=== PATIENT | female | born 1950 | race Caucasian/White ===

== ENCOUNTER 2016-08-06 07:54 | Inpatient (IN) | payer MEDICARE, BC ==
--- NOTE | 2016-08-01 15:38 | HP ---
PREOPERATIVE HISTORY AND PHYSICAL: DATE OF ADMISSION: 08/06/16 ATTENDING SURGEON: Dr. Sheehan (DICTATED BY MANDY OMER) CHIEF COMPLAINT: Left knee pain. HISTORY OF PRESENT ILLNESS: Ms. Fernandes is a 65-year-old female who has had greater than 5 years' worth of left knee pain. It has gotten worse over the past 6 months. She has been taking Vicodin for it with minimal relief. She has had a right total knee arthroplasty; however, the left knee has become much more painful. She is interested in surgical intervention for the correction of this problem. She has failed conservative treatment with injections, pain medication, and physical therapy. PAST MEDICAL HISTORY: 1. Hypertension. 2. Spinal stenosis. 3. Depression. 4. Sleep apnea. 5. Morbid obesity. 6. GERD. PAST SURGICAL HISTORY: 1. Tonsillectomy in 1952. 2. D and C x5 in 1968, 1969, 1970, 2004 and 2008. 3. Left breast lumpectomy in 1988. 4. Right total knee replacement in 2006. 5. Bilateral carpal tunnel release. CURRENT MEDICATIONS: 1. Fish oil 1000 mg 3 g daily. 2. Multivitamin daily. 3. Vitamin D 1000 units p.o. daily. 4. Vitamin E 400 units p.o. daily. 5. Vitamin C 500 mg p.o. daily. 6. Vicodin 5/325 mg 1 to 2 tabs every 4 to 6 hours as needed for pain. 7. Hydrochlorothiazide 25 mg p.o. daily. 8. Amlodipine besylate 10 mg p.o. daily. 9. Diclofenac sodium 75 mg p.o. b.i.d. 10. Cymbalta 60 mg p.o. daily. 11. Omeprazole 40 mg p.o. daily. 12. FiberCon 625 mg 2 tabs twice a day. ALLERGIES: TRAZODONE and AMITRIPTYLINE. FAMILY HISTORY: Positive for history of cancer. Negative for heart disease or diabetes. SOCIAL HISTORY: The patient is . She lives alone, although her son will be available to help postoperatively. She is a retired sterile instrument technician. She is a former smoker; however, she quit about 40 years ago. She drinks alcoholic beverages occasionally. She exercises regularly. REVIEW OF SYSTEMS: Constitutional: Negative for recent hospitalizations, fevers, chills, night sweats, or unexplained weight loss. Head: Negative for headaches, lightheadedness, or balance problems. Cardiovascular: Negative for chest or arm pain with exertion, history of heart attack, heart murmur, or heart palpitations. Positive for high blood pressure. Negative for embolism or DVT. Respiratory: Positive for some shortness of breath with exertion, but no chronic cough. No history of asthma or COPD. Gastrointestinal: Negative for heartburn, nausea, vomiting, diarrhea, or constipation. Positive for history of GERD. Genitourinary: Negative for urinary frequency or urinary tract infections. Positive for nocturia. Negative for kidney problems. Musculoskeletal: Positive for some chronic back pain. No recent fractures. Skin: Negative for rashes, lesions, lumps, or sores. Neurologic: Negative for seizure, stroke, or epilepsy. Positive for depression and anxiety. Endocrine: Negative for diabetes or thyroid problems. Hematology: Negative for easy bleeding, bruising, or anemia. PHYSICAL EXAMINATION GENERAL: She is a well-developed, well-nourished, heavyset female in no acute distress at rest. She is alert and oriented x3 with appropriate mood and affect. Gait: She ambulates with a mildly antalgic gait favoring the left. She has good balance and coordination. VITAL SIGNS: The patient is 5 feet 5 inches, 295 pounds. Blood pressure 119/78 , pulse of 96, respirations 20, temperature 97.9. HEENT: Normocephalic, atraumatic. Her hearing and vision are grossly intact. NECK: Her trachea is midline. RESPIRATORY: Lungs clear to auscultation bilaterally. No wheezes, rales, or rhonchi. CARDIOVASCULAR: Regular rate and rhythm. No murmurs, rubs, or gallops. Normal S1, S2. ABDOMEN: Soft, nondistended, nontender. Normal bowel sounds. EXTREMITIES: Exam of the left lower extremity, skin is intact without abrasions or open wounds. She lacks a little bit of full extension and can flex just past 90 degrees. She has a negative varus and valgus stress test. She is diffusely tender over the medial side of the knee. She has good strength with flexion and extension. Her sensation to light touch is intact. She has a normal vascular exam. IMAGING: AP, lateral and sunrise views of the patella were previously obtained and show bone on bone in the medial compartment with significant spurring and subchondral sclerosis. IMPRESSION: End-stage osteoarthritis of the left knee. PLAN: The patient is to undergo left total knee arthroplasty by Dr. Sheehan on 08/06/16. The risks, benefits, and postoperative course were discussed with the patient at length and she would like to proceed. A prescription for Percocet and Coumadin was sent out to pharmacy for postoperative pain and DVT prophylaxis. She is understanding not to take any of these prior to surgery. All of her questions were answered to her full satisfaction. She is understanding to call should she develop problems or concerns. We will otherwise follow with the patient postoperatively. MANDY OMER [id number]/[facility] #: [id number] KIN
[~2016-08-06 07:54] MED LIST: Buffered Lidocaine 0.9% SYRIN* 5 ML/SYR SYRINGE INTRADERM ONE; Famotidine IV* 10 MG/ML 2 ML (20 mg) IV ONE
[2016-08-06] MEDS ORDERED: ceFAZolin 2 GM PREMIX(*) 2 GM/50 ML BAG IVPB ONE (08:11)
[2016-08-06] MEDS ORDERED: Buffered Lidocaine 0.9% SYRIN* 5 ML/SYR SYRINGE ONE (08:11)
[2016-08-06] MEDS ORDERED: Famotidine IV* 10 MG/ML 2 ML (20 mg) ONE (08:11)
[2016-08-06] MEDS ORDERED: KETAMINE HCL* 50 MG/ML 10 ML VIAL ONE (08:21)
[2016-08-06] MEDS ORDERED: Midazolam* 1 MG/ML 5 ML VIAL (5 MG) ONE (08:21)
[2016-08-06] MEDS ORDERED: fentaNYL* 50 MCG/ML 2 ML VIAL (100 MCG VIAL) ONE (08:21)
[2016-08-06] MEDS ORDERED: DiMENhydriNATE IV* 50 MG/ML VIAL ONE (08:22)
[2016-08-06] MEDS ORDERED: ROPIVACAINE 5 MG/ML 30 ML BTL (0.5%) ONE (08:22)
[2016-08-06] MEDS ORDERED: Propofol* 10 MG/ML 20 ML BTL IV PUSH ONE ×3 (08:22→11:50)
[2016-08-06] MEDS ORDERED: Ketorolac INJ* 30 MG/ML 1 ML VIAL ONE (08:22)
[2016-08-06] MEDS ORDERED: Lidocaine 2% PF * 5 ML VIAL ONE (08:22)
[2016-08-06] MEDS ORDERED: Morphine PF AMP (0.5MG/ML)* 5 MG/10 ML AMP ONE (08:22)
[2016-08-06] MEDS ORDERED: Ondansetron INJ* 2 MG/ML VIAL ONE (08:22)
[2016-08-06] MEDS ORDERED: Bupivacaine 0.25% W/EPI* 50 ML VIAL ONE (10:40)
[2016-08-06] MEDS ORDERED: Midazolam* 1 MG/ML 2 ML VIAL (2 MG) ONE ×2 (10:48→10:56)
[2016-08-06] MEDS ORDERED: DiMENhydriNATE IV* 50 MG/ML VIAL IV PUSH PRN (11:12)
[2016-08-06] MEDS ORDERED: HYDROmorphone* 1 MG/ML 1 ML SYR IV PRN (11:12)
[2016-08-06] MEDS ORDERED: oxyCODONE/Acetamin 5/325 MG* TAB PO PRN ×2 (11:12→12:52)
[2016-08-06] MEDS ORDERED: Naloxone* 0.4 MG/ML 1 ML VIAL IV PRN (11:13)
[2016-08-06] MEDS ORDERED: Ondansetron INJ* 2 MG/ML VIAL IV PRN (11:13)
[2016-08-06] MEDS ORDERED: Gabapentin CAP(*) 300 MG PO ONE ×2 (11:13→19:47)
[2016-08-06] MEDS ORDERED: Nalbuphine* 20 MG/ML 1 ML VIAL IV PRN (11:13)
[2016-08-06] MEDS ORDERED: Bisacodyl SUPP* 10 MG SUPP PR PRN (12:52)
[2016-08-06] MEDS ORDERED: Morphine INJ* 10 MG/ML 1 ML SYRINGE IV PRN (12:52)
[2016-08-06] MEDS ORDERED: Polyethylene Glycol 3350* 17 GM PACKET PO PRN (12:52)
[2016-08-06] MEDS ORDERED: D5W 1/2 NS 1000 ML BAG* 1,000 ML IV SCH (13:00)
--- NOTE | 2016-08-06 13:37 | RAD ---
INDICATION: Status post left total knee arthroplasty COMPARISON: None TECHNIQUE: 2 view radiograph of the left knee. FINDINGS: The recently placed left knee prosthesis is anatomically aligned. Surgical skin luis are seen overlying the anterior knee. IMPRESSION: Anatomic alignment of recently placed left knee prosthesis.
[2016-08-06] MEDS ORDERED: Warfarin TAB(*) 4 MG PO ONE (17:00)
[2016-08-06] MEDS ORDERED: Morphine INJ* 10 MG/ML 1 ML SYRINGE ONE (17:13)
[2016-08-06] MEDS ORDERED: oxyCODONE/Acetamin 5/325 MG* TAB ONE (17:13)
[2016-08-06 17:15] LABS: BUN/Creatinine Ratio 21.2 (8-20); Calcium 8.4 mg/dL (8.6-10.3); EGFR African American 114.9 (>60); EGFR Non-African American 89.3 (>60); Magnesium 1.8 mg/dL (1.9-2.7); Potassium 3.9 mmol/L (3.5-5.0)
--- NOTE | 2016-08-06 17:27 | CONS ---
CC: Dr. Traore; Dr. Sheehan * CONSULTATION REPORT: DATE OF CONSULT: 08/06/16 PRIMARY CARE PROVIDER: Dr. Traore. REQUESTING PHYSICIAN FOR CONSULT: Dr. Sheehan. REASON FOR MEDICAL CONSULTATION: Evaluation and management of comorbid medical conditions. HISTORY OF PRESENT ILLNESS: Ms. Fernandes is a 65-year-old female patient. I refer you to Dr. Sheehan's H and P for further details, but she is 65, she has a history of hypertension, spinal stenosis, depression, ANUSHA, obesity, and GERD. She came in to Dr. Sheehan's service with complaints of left knee pain that was failing conservative therapy. She opted for a left total knee replacement which she underwent today. She did see Dr. Traore for preoperative evaluation. It was noted in the PACU and also apparently during the case, the patient was having irregular heartbeat frequently, although I do not have a pertinent strip to confirm this. The patient says that she has had a history of palpitations in the past for about the last year and a half. She has had palpitations and she had a Holter monitor about a year ago. She denies any chest pain. Denies any shortness of breath. She says that she had a stress test in [place] recently within the year. We will try to get that record. She denies having any abdominal pain or any nausea now. She says her pain is well controlled. She states that she does not feel lightheaded or dizzy, but because of her medical problems we were asked to evaluate in consult. PAST MEDICAL HISTORY: Significant for: 1. Hypertension. 2. Spinal stenosis. 3. Depression. 4. Obesity. 5. GERD. 6. ANUSHA. SURGICAL HISTORY: 1. She has had a history of tonsillectomy. 2. D and C x5. 3. She has had a lumpectomy. 4. Right total hip replacement. 5. Now, left total hip replacement. 6. She has had bilateral carpal tunnel repair. HOME MEDICATIONS: According to the preop list given include: 1. Norvasc 10 mg p.o. q.a.m. 2. Prilosec 40 mg daily. 3. [place]-3 fatty acids 1000 mg p.o. q.a.m. 4. Multivitamin 1 tablet daily. 5. Ativan 1 to 2 tablets p.o. at bedtime. 6. Lisinopril 40 mg daily. 7. Hydrochlorothiazide 25 mg daily. 8. Diclofenac 75 mg p.o. b.i.d. 9. Cymbalta 60 mg daily. 10. Vitamin C 500 mg p.o. daily. ALLERGIES TO MEDICATIONS: Include TRAZODONE and AMITRIPTYLINE. FAMILY HISTORY: Her mother had a history of AFib. Father had a history of cancer. SOCIAL HISTORY: She is a former smoker. Occasionally drinks alcohol. Surrogate decision maker is her son. REVIEW OF SYSTEMS: There is no documented fever. She denied any significant weight change. No double vision. No ear discharge. She denies having any rhinorrhea. No sore throat. No thyroid enlargement. Denies having any chest pain currently. There were palpitations. No orthopnea. No nocturnal dyspnea. There is no abdominal pain. No nausea. No vomiting. No dysuria. No frequency. No loss of consciousness. No pruritus. No skin ulcerations. Review of 14 systems completed, all others negative. PHYSICAL EXAM: Reveals Vital Signs: Blood pressure of 120/70 with a pulse of 73, respirations 15, O2 sat 96%, and temperature 97.0. General: At this time, Ms. Fernandes is a 65-year-old female patient. She is sitting in the PACU bed. She does not appear to be in any acute distress. HEENT: Head is atraumatic and normocephalic. Eyes: EOMs are intact. Sclerae anicteric and not pale. Throat: Oral mucosa appears to be moist. No oropharyngeal erythema. Neck: Supple. Heart: Sounds S1, S2. Regular rate and rhythm. No murmurs, rubs, or gallops. Lungs: Clear to auscultation bilaterally. No wheezes, rales, or rhonchi. Abdomen was soft, flat. Bowel sounds hypoactive. Extremities: Distal CSM checks were intact to the left lower extremity. She is unable to move this extremity due to pain and it is the operative leg. She moves the upper extremities with 5/5 strength. Neurological: The patient is awake, she is alert, and she is oriented x3. Tongue midline. Motor Room Controller are equal. No gross focal deficits. The skin is intact. DIAGNOSTIC STUDIES/LAB DATA: Preoperatively, WBC 7.3, RBC of 5.18, hemoglobin of 15.1, hematocrit 46, platelet count 245,000. INR 0.93. PTT of 29. Sodium 137, potassium 4.4, chloride of 105, bicarb 25, BUN 17, creatinine of 0.79, glucose of 91. Urine preop was negative. She had a preop chest x-ray. The chest x-ray shows no active cardiopulmonary disease. The preop EKG shows a normal sinus rhythm, rate of 90. No ST elevations or T-wave inversions. Old medical records were reviewed. ASSESSMENT AND PLAN: Ms. Fernandes is a 65-year-old female patient coming in to the orthopedic services today for an elective total knee replacement. We are asked to evaluate in consult. Our recommendations at this point are: 1. Status post left total knee replacement: I will defer the management to Dr. Sheehan and his team. 2. Palpitations: Again, there is question if she was going in and out of atrial fibrillation. I do not have any strips to prove this. I am going to try to see if our nursing staff here can print a strip so we will be proved that she did have some atrial fibrillation. I certainly will get in touch with the motion picture camera lens technician on-call, but her rate is controlled now. She appears to be in sinus rhythm. I am getting an EKG. I am going to check her electrolytes as well as TSH. I will place her in the ICU overnight to help monitor for any instances of atrial fibrillation and she is going to be started on blood thinners for the postoperative knee protocol anyway, and if we do find atrial fibrillation, again we will get a consult with Cardiology and probably get an echo and we will continue to follow. 3. Hypertension: We will continue her medications with the exception of hydrochlorothiazide and we will continue to follow. 4. Spinal stenosis: Continue with her current medical regimen. 5. Depression: Continue Cymbalta. 6. Gastroesophageal reflux disease: Continue PPI therapy. 7. Obstructive sleep apnea: Continue her CPAP. 8. DVT prophylaxis: We will defer to the primary team. 9. Fluids, electrolytes, and nutrition: Recommended a regular diet. 10. Code status: Full code. TIME SPENT: Time spent on the consult was 60 minutes; greater than half the time was spent [id number] with the patient obtaining my history and physical, other half the time spent going over the plan of care with the patient and implementing plan of care. I did discuss the plan of care with my attending, Dr. Clement; he is in agreement. [place] K[place] NP [id number]/[facility] #: [id number] MTDMarcello
[2016-08-06 17:45] LABS: TSH (Thyroid Stimulating Horm) 3.16 mcIU/mL (0.34-5.60)
[2016-08-06] MEDS: Ibuprofen TAB* 600 MG PO SCH (18:37)
[2016-08-06] MEDS: Lisinopril TAB* 10 MG PO SCH (18:37)
[2016-08-06] MEDS: ceFAZolin VIAL(*) 1 GM in NS 0.9% 50 ML* 50 ML IVPB SCH (18:39)
[2016-08-06] MEDS ORDERED: Potassium Chlor TAB* 20 MEQ TAB.ER PO ONE (19:34)
[2016-08-06] MEDS ORDERED: Magnesium Sulfate 2 GM IV* 2 GM/50 ML BAG IVPB ONE (19:34)
[2016-08-06] MEDS: Magnesium Hydroxide LIQ* 30 ML UDC PO SCH (20:15)
[2016-08-06] MEDS: Docusate CAP* 100 MG PO SCH (20:15)
[2016-08-06] MEDS: LORazepam TAB(*) 1 MG PO PRN (21:02)
[2016-08-06] MEDS: oxyCODONE/Acetamin 5/325 MG* TAB PO PRN (21:49)
[2016-08-07] MEDS: Ibuprofen TAB* 600 MG PO SCH (01:10)
[2016-08-07] MEDS: oxyCODONE/Acetamin 5/325 MG* TAB PO PRN ×4 (01:37→18:04)
[2016-08-07] MEDS ORDERED: Ondansetron INJ* 2 MG/ML VIAL IV PRN (02:30)
[2016-08-07] MEDS ORDERED: Ondansetron TAB* 4 MG PO PRN (02:30)
[2016-08-07] MEDS ORDERED: Acetaminophen TAB* 325 MG PO PRN (02:31)
[2016-08-07] MEDS ORDERED: oxyCODONE/Acetamin 5/325 MG* TAB PO PRN (02:31)
[2016-08-07] MEDS: ceFAZolin VIAL(*) 1 GM in NS 0.9% 50 ML* 50 ML IVPB SCH ×2 (02:33→11:40)
[2016-08-07] MEDS: Morphine INJ* 10 MG/ML 1 ML SYRINGE IV PRN ×3 (03:55→22:53)
[2016-08-07] MEDS: diPHENhydraMINE IV* 50 MG/ML 1 ml VIAL (BENADRYL) IV PRN ×2 (04:06→12:18)
--- NOTE | 2016-08-07 05:06 | OP ---
DATE OF OPERATION: 08/06/16 - ROOM #ICU-08 DATE OF : 46 SURGEON: Luther Sheehan MD BOBBIN PRESSER: Analy Torres RPA ANESTHESIOLOGIST: Delmis Mitchell MD ANESTHESIA: Spinal and regional. PRE-OP DIAGNOSIS: Osteoarthritis, left knee. POST-OP DIAGNOSIS: Osteoarthritis, left knee. OPERATIVE PROCEDURE: Left total knee arthroplasty. INDICATIONS: Ms. Fernandes is a 65-year-old female who has had significant left knee pain for many years now. She had been taking Vicodin to help with the pain and that has been losing effectiveness since she presented to the office, very interested in a left total knee arthroplasty. She had injections and physical therapy previously to this and while that it worked in the past, recently has not been giving her relief. By x-ray, she had significant arthritic changes being completely [id number] with end-stage arthritis in all 3 compartments. Risks of surgery such as infection, scar formation, stiffness, DVT, pulmonary embolism, hardware failure, and continued pain were some of the risks discussed. She had been declared medically optimized and wished to proceed. ESTIMATED BLOOD LOSS: Less than 50 cc. COMPLICATIONS: None. HARDWARE: Lars Persona #8 femur, F tibia, 13-mm polyethylene, 38-mm all- polyethylene patellar button. DESCRIPTION OF PROCEDURE: MANDY Cervantes was present throughout the case from positioning, prepping, incision, implanting and closing and it could not have been done without her. The patient had a femoral nerve block performed in the holding area and then was brought to the OR. Spinal anesthesia was introduced. Hussein catheter was placed. Tourniquet was placed over the proximal left thigh and was used during the case. Total tourniquet time would be 63 minutes. Left knee was prepped and then draped. Esmarch was used to exsanguinate the leg and the tourniquet was raised. Midline incision was made and was carried down to the skin and subcutaneous fat. Extensor mechanism was sharply exposed and a sharp parapatellar arthrotomy was made. Quite a bit of clear yellowish joint fluid was encountered. Fat pad was sharply excised and the soft tissues were sharply elevated from the medial side of the tibia. Patella measured 26 mm in thickness and a nice 10-mm cut was taken. Patella was then easily subluxated laterally and the knee was flexed up. Nice exposure of the distal femur was obtained. Step drill was used to open the femoral canal and an intramedullary guide was placed. Guide was adjusted and the angle was set at 5 degrees. Guide was adjusted until it was parallel with the epicondyles and then the guide was pinned into place. Distal femoral cutting guide was then pinned into place and the intramedullary guide was removed. Distal femoral cut was taken and appeared a nice cut was obtained. Femur was sized and she sat between an 8 and a 9. Holes were drilled and an 8-block was placed. With the drill, it felt that I came out right on the anterior cortex of the femur and anterior and posterior femoral cuts followed by the chamfer cuts were taken. Attention was turned to the proximal tibia. Step drill was used to open the tibial canal and the intramedullary guide was placed. Outrigger was assembled and adjusted until it appeared it would take barely 1 mm from the very worn medial side. By x-ray, it could be seen how she had worn down quite a bit on that inner side. Alignment nati was dropped to double check the alignment and that looked good. Cutting guide was then pinned into place and the proximal tibial cut was taken. I was able to just use the curved line to come right on the surface and essentially clean up where she had worn down to the medial side of the tibia. It could be seen that I had taken an extra few millimeters from the lateral side of the tibia. Sizer blocks were used and the 12 was a little bit loose and the 14 seemed to feel little snug. Her alignment appeared quite good. Therefore, I thought we were in the correct ballpark. Proximal tibia was sized and the F sat very nicely. F was then pinned into place and proximal tibia was drilled and then punched. Attention was returned to the femur. 8 was then impacted into place and the stud holes were drilled and the notch cut was taken. Unfortunately, we only had the right trial polyethylene for this size knee, so I downsized one and used as a trial. With the 12, it appeared that she came out nicely into full extension with just a little bit of wobble when she was locked out fully and flexion was also quite easy. Therefore, I then tried with a 14 and corrected the wobbling. She came out nicely, so I thought we would definitely be in the ballpark. Trial instrumentation was removed and the patella was sized. The 38 sat right edge to edge and holes were drilled and trial was snapped into place. Prior to removing the trial instrumentation, she was again flexed and extended and patella tracking was perfect. Trial instrumentation was removed and the knee was copiously pulse lavaged. Analy Drakeserafin was present throughout the case and from the positioning through approach and trialing and placing the instruments and the case could not have been done without her. Cement was being prepared and parts were being placed on the back table. Tibia followed by femur and patella were all cemented into place. Excess cement was removed and the cement was allowed to harden. 50 cc of 0.25% Marcaine with epinephrine was injected in and about the knee. Once the cement had hardened, the other tray with the correct trial polyethylene was up and she was trialed with a 12, 14, and 13. I liked the 13 best and 13 polyethylene was called for. Polyethylene was then snapped into place. Knee was copiously pulse lavaged and the parapatellar arthrotomy was repaired using interrupted #1 Vicryl sutures. Tourniquet was let down and no significant bleeding was encountered. The knee was again copiously pulse lavaged and subcutaneous tissues were reapproximated in 2 layers using 2-0 Vicryl sutures. Skin was closed using luis. Sterile dressing and a Cryo/Cuff were applied in the OR. The patient was then awakened, stable on transfer to the recovery room. [id number]/[facility] #: [id number] KIN
[2016-08-07] MEDS: oxyCODONE TAB* 5 MG TAB PO PRN ×3 (05:46→21:09)
[2016-08-07 06:16] LABS: Hematocrit 36 % (35-47)
[2016-08-07 06:28] LABS: Calcium 8.5 mg/dL (8.6-10.3); EGFR African American 99.1 (>60); EGFR Non-African American 77.1 (>60); Potassium 4.2 mmol/L (3.5-5.0)
[2016-08-07] MEDS ORDERED: Perflutren Lipid Microsphere* 3 ML VIAL ONE (07:52)
[2016-08-07] MEDS: Magnesium Hydroxide LIQ* 30 ML UDC PO SCH ×2 (08:38→21:10)
[2016-08-07] MEDS: Docusate CAP* 100 MG PO SCH ×2 (08:38→21:09)
[2016-08-07] MEDS: DULoxetine DR CAP* 60 MG CAP.DR PO SCH (08:38)
[2016-08-07] MEDS: Omeprazole CAP* 20 MG PO SCH (08:39)
[2016-08-07] MEDS: Vitamin THERAPEUTIC TAB PO SCH (08:39)
[2016-08-07] MEDS: amLODIPine TAB* 5 MG PO SCH (08:39)
--- NOTE | 2016-08-07 08:55 | ECHO ---
Patient: CASANDRA ORTIZ [facility] Rec#: [id number] : 1950 Date: 08/07/2016 Age: 65y Height: 165.1 cm / 65.0 in Weight: 133.81 kg / 294.9 lbs Sex: F BSA: 2.33 Room#: [facility] Admit Date#: 08/06/2016 Type: Inpatient Referring: Maikol Peacock NP Reading: Jamison Crandall MD Reservations Specialist: Caroline Guerra RDCS CC: Julio César Traore DO Transthoracic Echocardiogram Indication: Abn EKG BP: 100/64 HR: 83 Rhythm: NSR Findings History: Morbid obesity, s/p left knee replacement 08/06/16 with Abn EKG noted post Op,ANUSHA with CPAP rx, GERD. Technical Comments: The study is technically limited due to patient body habitus. Completed at 0841. The study is technically limited due to patient being on BIPAP during study. Left Ventricle: The left ventricular chamber size is decreased. Mild to moderate concentric left ventricular hypertrophy is observed. Global left ventricular wall motion and contractility are within normal limits. There is normal left ventricular systolic function. The estimated ejection fraction is 55-60%. There is no consistent Doppler evidence of clinically significant diastolic dysfunction. Left Atrium: The left atrium is mild to moderately dilated. Right Ventricle: Moderator Band present. The right ventricular cavity size is normal. The right ventricular global systolic function is normal. Right Atrium: The right atrial cavity size is normal. Aortic Valve: The aortic valve is trileaflet. There is no evidence of aortic regurgitation. There is no evidence of aortic stenosis. Mitral Valve: The mitral valve leaflets appear normal. There is mild to moderate mitral regurgitation. There is no evidence of mitral stenosis. Tricuspid Valve: The tricuspid valve leaflets are normal. There is mild tricuspid regurgitation. There is no tricuspid stenosis. Pulmonic Valve: The pulmonic valve appears normal. There is a trace pulmonic regurgitation. There is no pulmonic stenosis. Pericardium: The pericardium appears normal. A pericardial fat pad is visualized. Aorta: There is no dilatation of the ascending aorta. There is no dilatation of the aortic arch. There is no dilation of the aortic root. Pulmonary Artery: The main pulmonary artery appears normal. Venous: The venous system is not well visualized. Contrast: Definity was used to optimize study. A total of 2 ml was used. Intravenous contrast was used to enhance endocardial border definition. Summary: There was not any prior study for comparison. Conclusions Mild to moderate concentric left ventricular hypertrophy is observed. Global left ventricular wall motion and contractility are within normal limits. There is normal left ventricular systolic function. The estimated ejection fraction is 55-60%. The right ventricular global systolic function is normal. There is no evidence of aortic stenosis. There is mild to moderate mitral regurgitation. There is mild tricuspid regurgitation. The pericardium appears normal. Measurements Name Value Normal Range RVIDd (AP) 2D 3.1 cm (0.9 - 2.6) RVDdMajor (2D) 3.5 cm (2.2 - 4.4) RAd ISD 4CH 4.8 cm (3.4 - 4.9) RA (A4C)W 3.8 cm (2.9 - 4.6) IVSd (2D) 1.3 cm (0.6 - 1) LVPWd (2D) 1.1 cm (0.6 - 1) LVIDd (2D) 3.3 cm (3.6 - 5.4) LVIDs (2D) 2.5 cm - LV FS (2D) 23 % (25 - 45) Aortic Annulus 1.7 cm (1.4 - 2.6) Ao root diameter (2D) 3 cm (2.1 - 3.5) Ascending Ao 2.9 cm (2.1 - 3.4) Aortic arch 2.3 cm (1.8 - 3.4) Descending Ao 0.8 cm - LA dimension (AP) 2D 4.4 cm (2.3 - 3.8) LAd ISD 4CH 6.6 cm (2.9 - 5.3) LA ISD 4CH W 4.4 cm (2.5 - 4.5) Name Value Normal Range LA ESV SP 4CH (A/L) 56 ml - LA ESV SP 2CH (A/L) 49 ml - LA ESV BP (A/L) 56 ml - LA ESV BP (A/L) index 23.84 ml/m2 - LA ESV SP 4CH (MOD) 56 ml - LA ESV SP 2CH (MOD) 47 ml - Name Value Normal Range MV E-wave Vmax 1.3 m/sec - MV deceleration time 193 msec - MV A-wave Vmax 1 m/sec - MV E:A ratio 1.23 ratio - LV septal e' Vmax 0.08 m/sec - LV lateral e' Vmax 0.14 m/sec - LV E:e' septal ratio 16.25 ratio - LV E:e' lateral ratio 9.29 ratio - Name Value Normal Range AV Vmax 1.7 m/sec - AV VTI 39.5 cm - AV peak gradient 11.97 mmHg - AV mean gradient 5.24 mmHg - LVOT Vmax 1.3 m/sec - LVOT VTI 29.7 cm - LVOT peak gradient 6.98 mmHg - LVOT mean gradient 3.52 mmHg - Name Value Normal Range TR Vmax 2.1 m/sec - TR peak gradient 18 mmHg - RAP 8 mmHg - RVSP 26 mmHg - Name Value Normal Range PV Vmax 0.9 m/sec - PV peak gradient 3.44 mmHg -
[2016-08-07] MEDS ORDERED: amLODIPine TAB* 5 MG PO SCH (09:00)
[2016-08-07] MEDS ORDERED: Hydrochlorothiazide TAB* 25 MG PO SCH (09:00)
--- NOTE | 2016-08-07 09:11 | PN ---
Progress Note - Progress Note SOAP: Subjective: []Patient seen OOB in chair in ICU after working with PT. Monitored closely overnight secondary to medical co morbidities and feelings of "palpitations" yesterday, with questionable transient a fib intra op and in PACU. She denies feeling heart rate irregularity since yesterday's episode. She denies SOB, CP, dizziness, or n/v. Nursing reports sinus rhythm overnight and this am. Objective: [] Vital Signs Temp 99.2 F 08/07/16 07:56 Pulse 69 08/07/16 06:00 Resp 17 08/07/16 08:38 BP 100/64 08/07/16 06:00 Pulse Ox 96 08/07/16 06:00 Intake & Output 08/06/16 08/07/16 08/07/16 18:59 06:59 18:59 Intake Total 1760 2200 Output Total 800 1275 Balance 960 925 Weight 293 lb 12.8 oz Intake: IV Fluids 1400 1152 D5W 1/2 NS 1152 LR 1400 IVPB 168 ABX - CEFAZOLIN 113 Magnesium 55 Oral 360 880 Output: Hussein 800 1275 Laboratory Results - last 24 hr 08/06/16 08/07/16 08/07/16 16:47 05:54 05:54 Hgb 12.0 Hct 36 INR (Anticoag Therapy) 1.07 Sodium 137 Potassium 3.9 Chloride 106 Carbon Dioxide 25 Anion Gap 6 BUN 14 Creatinine 0.66 Est GFR ( Amer) 114.9 Est GFR (Non-Af Amer) 89.3 BUN/Creatinine Ratio 21.2 H Glucose 94 Calcium 8.4 L Magnesium 1.8 L TSH 3.16 08/07/16 05:54 Hgb Hct INR (Anticoag Therapy) Sodium 134 Potassium 4.2 Chloride 104 Carbon Dioxide 27 Anion Gap 3 BUN 12 Creatinine 0.75 Est GFR ( Amer) 99.1 Est GFR (Non-Af Amer) 77.1 BUN/Creatinine Ratio 16.0 Glucose 130 H Calcium 8.5 L Magnesium TSH left knee ROSIBEL is dry and intact cryo re adjusted +DF/PF left ankle calf mild tenderness, no excessive edema, Elan's negative sensation intact Assessment: []s/p Left total knee arthroplasty POD #1 Plan: []PT/OT WBAT LLE Coumadin with heparin bridge, 8 mg today Transfer to [facility] when medicine deems stable Hopes for d/c home
--- NOTE | 2016-08-07 13:37 | CONS ---
CC: Dr. Julio César Traore; Luther Sheehan MD CARDIOLOGY CONSULTATION: DATE OF CONSULT: 08/07/16 INDICATION FOR CONSULTATION: Atrial fibrillation. HISTORY OF PRESENT ILLNESS: The patient is a 65-year-old female with a history of hypertension, sle ep apnea, arthritis who underwent a knee replacement surgery yesterday. The patient's baseline EKG demonstrates normal sinus rhythm. During the procedure, the patient went into atrial fibrillation. She was in atrial fibrillation for approximately 2 hours and converted back to normal sinus rhythm. In speaking with the patient, the patient states that over the last year or so, she has been having episodes of palpitations, she says they feel like skip beats. She does not have any episodes of pr olonged arrhythmia. She denies any chest pain. She denies any lightheadedness, dizziness or syncope . The patient did have a Holter monitor as an outpatient and a stress test as an outpatient, both o f which were reported as unremarkable. The patient had an echocardiogram today at [facility] which demonstrated normal LV size a nd systolic function. No significant valvular abnormalities. In speaking with the patient today, t he patient has no complaints. She has some mild pain in her knee from her knee surgery. PAST MEDICAL HISTORY: 1. Hypertension. 2. Spinal stenosis. 3. Osteoarthritis. 4. Gastroesophageal reflux disease. 5. Sleep apnea, she does use a CPAP machine. PAST SURGICAL HISTORY: Tonsillectomy in 1953, total knee replacement in 2006, carpal tunnel release in the past. OUTPATIENT MEDICATIONS: 1. Multivitamin a day. 2. Hydrocodone as directed. 3. Hydrochlorothiazide 12.5 mg a day. 4. Amlodipine 10 mg a day. 5. Lisinopril 40 mg a day. 6. Cymbalta 60 mg a day. 7. Omeprazole 40 mg a day. ALLERGIES: To TRAZODONE and AMITRIPTYLINE. FAMILY HISTORY: Significant for cancer, but no history of arrhythmias. SOCIAL HISTORY: She is . She lives in [place]. She is retired. She is a previous smoker, but has not smoked in many years. She tries to exercise 3 times a week. She has rare alcohol intake. PHYSICAL EXAMINATION: Vital Signs: Temperature 99.2, heart rate is 70, respiratory rate is 17, blo od pressure 100/64. HEENT: Sclerae anicteric. Oropharynx is pink without erythema. Neck: Carotid s are 2+ without bruits. JVD is normal. Thyroid is normal. Cardiac Exam: S1, S2 without any murm urs, rubs or gallops. Lungs: Clear to auscultation bilaterally. There is no dullness to percussio n. Abdomen: Obese, soft, nontender, nondistended with normoactive bowel sounds. Extremities: Harini w minimal edema on the left side where she had her knee surgery. Neuro: The patient is awake, aler t, and oriented. She moves all 4 extremities equally. DIAGNOSTIC STUDIES/LAB DATA: Chemistries within normal limits. BUN 14, creatinine 0.66, TSH 3.16. EKG demonstrates normal sinus rhythm with normal axis and intervals. IMPRESSION: This is a 65-year-old female with a history of hypertension, sleep apnea, who underwent knee surgery yesterday. She went into atrial fibrillation in the recovery area. She was in atrial fibrillation for approximately 2 hours. The patient has been having episodes of palpitations for the past year, which could represent brief episodes of atrial fibrillation. For now, my recommendation is the patient be discharged home. The patient will go home on anticoagu lation, either Xarelto 20 mg a day or Eliquis 5 mg twice a day. The patient should be started on a l ow-dose beta kamla, Toprol XL 25 mg once a day. I will see the patient in followup at the [facility] in the next 2 to 3 weeks. [id number]/[facility] #: [id number]
[2016-08-07] MEDS: Heparin VIAL(*) 5000 UNITS/ML VIAL (FIVE THOUSAND) SUBCUT SCH ×2 (14:04→22:53)
--- NOTE | 2016-08-07 15:32 | PN ---
Subjective Date of Service: 08/07/16 Interval History: Pt is feeling ok. Sleepy from the pain medications but states that her pain is controlled. She denies any SOB. No chest pain. Objective Active Medications: Acetaminophen (Tylenol Tab*) 650 mg PO Q4H PRN PRN Reason: pain, fever Amlodipine Besylate (Norvasc Tab*) 10 mg PO QAM [facility] Last Admin: 08/07/16 08:39 Dose: 10 mg Bisacodyl (Dulcolax Supp*) 10 mg [place] DAILY PRN PRN Reason: constipation Diphenhydramine HCl (Benadryl Iv*) 12.5 mg IV Q6H PRN PRN Reason: PRURITIS Last Admin: 08/07/16 12:18 Dose: 12.5 mg Docusate Sodium (Colace Cap*) 100 mg PO BID [facility] Last Admin: 08/07/16 08:38 Dose: 100 mg Duloxetine HCl (Cymbalta Cap*) 60 mg PO QAM [facility] Last Admin: 08/07/16 08:38 Dose: 60 mg Heparin Sodium (Porcine) (Heparin Vial(*)) 5,000 units SUBCUT Q8HR [facility] Last Admin: 08/07/16 14:04 Dose: 5,000 units Dextrose/Sodium Chloride (D5w 1/2 Ns 1000 Ml Bag*) 1,000 mls @ 100 mls/hr IV PER RATE [facility] Last Admin: 08/07/16 03:56 Dose: 100 mls/hr Lactulose (Lactulose*) 30 ml PO Q6H PRN PRN Reason: constipation Lisinopril (Prinivil Tab*) 40 mg PO QPM [facility] Last Admin: 08/06/16 18:37 Dose: 40 mg Lorazepam (Ativan Tab(*)) 1 mg PO Q6H PRN PRN Reason: ANXIETY Last Admin: 08/06/16 21:02 Dose: 1 mg Magnesium Hydroxide (Milk Of Magnesia Liq*) 30 ml PO BID [facility] Last Admin: 08/07/16 08:38 Dose: 30 ml Morphine Sulfate (Morphine Inj (Syringe)*) 5 mg IV Q2HR PRN PRN Reason: PAIN - BREAKTHRU Last Admin: 08/07/16 03:55 Dose: 5 mg Multivitamins (Theragran Tab*) 1 tab PO DAILY [facility] Last Admin: 08/07/16 08:39 Dose: 1 tab Omeprazole (Prilosec Cap*) 40 mg PO QAM [facility] Last Admin: 08/07/16 08:39 Dose: 40 mg Ondansetron HCl (Zofran Inj*) 4 mg IV Q6H PRN PRN Reason: nausea Ondansetron HCl (Zofran Tab*) 4 mg PO Q6H PRN PRN Reason: NAUSEA Oxycodone HCl (Roxycodone Tab*) 10 mg PO Q4H PRN PRN Reason: PAIN - SEVERE Last Admin: 08/07/16 14:09 Dose: 10 mg Oxycodone/Acetaminophen (Percocet 5/325 Tab*) 1 tab PO Q4H PRN PRN Reason: PAIN - MODERATE Oxycodone/Acetaminophen (Percocet 5/325 Tab*) 2 tab PO Q4HR PRN PRN Reason: PAIN SEVERE Last Admin: 08/07/16 12:18 Dose: 2 tab Polyethylene Glycol/Electrolytes (Miralax*) 17 gm PO DAILY PRN PRN Reason: Constipation Warfarin Sodium (Coumadin Tab(*)) 8 mg PO ONCE@1700 ONE PRN Reason: Protocol Stop: 08/07/16 17:01 Vital Signs 08/06/16 08/06/16 08/06/16 15:38 15:45 16:00 Temperature 98.5 F Pulse Rate 80 82 79 Respiratory 13 19 13 Rate Blood Pressure 147/69 139/65 (mmHg) O2 Sat by Pulse 95 92 93 Oximetry 08/06/16 08/06/16 08/06/16 16:32 16:45 17:00 Temperature Pulse Rate 84 84 80 Respiratory 23 16 19 Rate Blood Pressure 123/67 133/67 (mmHg) O2 Sat by Pulse 93 93 94 Oximetry 08/06/16 08/06/16 08/06/16 17:25 17:31 18:00 Temperature Pulse Rate 86 Respiratory 92 10 8 Rate Blood Pressure 145/62 (mmHg) O2 Sat by Pulse 93 Oximetry 08/06/16 08/06/16 08/06/16 19:00 19:42 20:00 Temperature 97.4 F Pulse Rate 87 Respiratory 13 14 Rate Blood Pressure 131/81 (mmHg) O2 Sat by Pulse 92 Oximetry 08/06/16 08/06/16 08/06/16 20:03 21:00 21:02 Temperature Pulse Rate 77 82 Respiratory 15 14 12 Rate Blood Pressure 124/62 119/54 (mmHg) O2 Sat by Pulse 93 93 Oximetry 08/06/16 08/06/16 08/06/16 21:49 21:50 21:53 Temperature Pulse Rate Respiratory 20 20 Rate Blood Pressure (mmHg) O2 Sat by Pulse 93 Oximetry 08/06/16 08/06/16 08/07/16 22:00 23:00 00:00 Temperature 97.9 F Pulse Rate 82 79 Respiratory 13 12 18 Rate Blood Pressure 118/67 124/59 (mmHg) O2 Sat by Pulse 93 92 95 Oximetry 08/07/16 08/07/16 08/07/16 00:01 01:00 01:37 Temperature Pulse Rate 72 74 Respiratory 10 12 24 Rate Blood Pressure 102/48 125/77 (mmHg) O2 Sat by Pulse 93 92 Oximetry 08/07/16 08/07/16 08/07/16 02:00 03:00 04:00 Temperature 97.9 F Pulse Rate 75 79 Respiratory 8 14 20 Rate Blood Pressure 118/62 109/63 (mmHg) O2 Sat by Pulse 92 91 Oximetry 08/07/16 08/07/16 08/07/16 04:04 05:00 05:58 Temperature Pulse Rate 83 76 Respiratory 16 12 12 Rate Blood Pressure 127/59 121/65 (mmHg) O2 Sat by Pulse 92 94 Oximetry 08/07/16 08/07/16 08/07/16 06:00 07:00 07:56 Temperature 99.2 F Pulse Rate 69 77 Respiratory 13 12 Rate Blood Pressure 100/64 125/65 (mmHg) O2 Sat by Pulse 96 93 Oximetry 08/07/16 08/07/16 08/07/16 08:00 08:38 09:00 Temperature Pulse Rate 76 77 Respiratory 16 17 18 Rate Blood Pressure 111/46 (mmHg) O2 Sat by Pulse 94 90 Oximetry 08/07/16 08/07/16 08/07/16 10:00 11:00 12:00 Temperature 98.2 F Pulse Rate 83 78 71 Respiratory 20 15 18 Rate Blood Pressure (mmHg) O2 Sat by Pulse 93 94 94 Oximetry 08/07/16 08/07/16 08/07/16 12:18 13:48 13:57 Temperature Pulse Rate Respiratory 15 18 16 Rate Blood Pressure (mmHg) O2 Sat by Pulse Oximetry Oxygen Devices in Use Now: None Appearance: Middle aged obese female sitting up in bed, NAD Eyes: No Scleral Icterus Ears/Nose/Mouth/Throat: Mucous Membranes Moist Respiratory: Symmetrical Chest Expansion and Respiratory Effort, Clear to Auscultation Cardiovascular: NL Sounds; No Murmurs; No JVD, RRR, No Edema Abdominal: NL Sounds; No Tenderness; No Distention Extremities: No Clubbing, Cyanosis, - - L knee in cryounit Skin: No Rash or Ulcers, No Nodules or Sclerosis Neurological: Alert and Oriented x 3 Result Diagrams: 08/07/16 05:54 08/07/16 05:54 Microbiology and Other Data: Microbiology 08/06/16 16:47 Nasal Screen MRSA (PCR)(MATT) - Final Nasal Mrsa Negative Assess/Plan/Problems-Billing Ms Fernandes is a 65 yo F who has a h/o HTN and ANUSHA and is POD#1 from a L TKA and had post operative afib. - Patient Problems (1) Status post total left knee replacement Current Visit: Yes Status: Acute Code(s): Z96.652 - PRESENCE OF LEFT ARTIFICIAL KNEE JOINT SNOMED Code(s): 2074454554672 Comment: Management per Dr. Sheehan. (2) A-fib Current Visit: Yes Status: Acute Code(s): I48.91 - UNSPECIFIED ATRIAL FIBRILLATION SNOMED Code(s): 14118255 Comment: The patient has remained in NSR. Dr. Crandall saw the patient earlier this AM and as she has had palpitations off and on for quite a while she should be on anticoagulation and low dose BBlocker. Will start metoprolol tartrate 12.5mg BID with hold parameters and likely d/c her HCTZ to allow room in her BP for this. Will discuss anticoagulation options with Dr. Sheehan. Additionally the patient should follow up with Dr. Crandall in the next few weeks. (3) HTN (hypertension) Current Visit: Yes Status: Acute Code(s): I10 - ESSENTIAL (PRIMARY) HYPERTENSION SNOMED Code(s): 61841199 Comment: BP is under good control despite being off her HCTZ. Continue to follow with the addition of metoprolol. (4) ANUSHA (obstructive sleep apnea) Current Visit: Yes Status: Acute Code(s): G47.33 - OBSTRUCTIVE SLEEP APNEA ( ADULT) (PEDIATRIC) SNOMED Code(s): 33953140 Comment: Continue CPAP. (5) DVT prophylaxis Current Visit: Yes Status: Acute Code(s): LSS2114 - SNOMED Code(s): 421504964 Comment: SQ heparin bridging to coumadin currently (6) Full code status Current Visit: Yes Status: Acute Code(s): Z78.9 - OTHER SPECIFIED HEALTH STATUS SNOMED Code(s): 022352337
[2016-08-07] MEDS ORDERED: Warfarin TAB(*) 4 MG PO ONE (17:00)
[2016-08-07] MEDS: Lisinopril TAB* 10 MG PO SCH (17:51)
[2016-08-07] MEDS: Metoprolol Tartrate TAB* 25 MG PO SCH (21:10)
[2016-08-07] MEDS: LORazepam TAB(*) 1 MG PO PRN (22:54)
[2016-08-08] MEDS: Morphine INJ* 10 MG/ML 1 ML SYRINGE IV PRN (02:20)
[2016-08-08] MEDS: oxyCODONE/Acetamin 5/325 MG* TAB PO PRN ×2 (02:21→08:42)
[2016-08-08 06:16] LABS: Hematocrit 35 % (35-47); Hemoglobin 11.7 g/dl (12.0-16.0)
[2016-08-08] MEDS: Magnesium Hydroxide LIQ* 30 ML UDC PO SCH ×2 (08:42→21:46)
[2016-08-08] MEDS: Omeprazole CAP* 20 MG PO SCH (08:43)
[2016-08-08] MEDS: Metoprolol Tartrate TAB* 25 MG PO SCH ×2 (08:46→21:48)
[2016-08-08] MEDS: Docusate CAP* 100 MG PO SCH ×2 (08:47→21:46)
[2016-08-08] MEDS: Vitamin THERAPEUTIC TAB PO SCH (08:47)
[2016-08-08] MEDS: DULoxetine DR CAP* 60 MG CAP.DR PO SCH (08:47)
[2016-08-08] MEDS: amLODIPine TAB* 5 MG PO SCH (08:47)
[2016-08-08] MEDS: Rivaroxaban TAB(*) 20 MG TAB PO SCH (08:59)
--- NOTE | 2016-08-08 10:59 | PN ---
Subjective Date of Service: 08/08/16 Interval History: Pt is feeling well. She states PT was difficult this AM and she is now "pooped. " Nursing notes that her O2 sat was low this AM but it was felt that it was likely related to her narcotic pain medications. She denies any CP or SOB. Objective Active Medications: Acetaminophen (Tylenol Tab*) 650 mg PO Q4H PRN PRN Reason: pain, fever Amlod[facility]ine [facility] ([facility] Last Admin: 08/08/16 08:47 Dose: 10 mg Bisacodyl (Dulcolax Supp*) 10 mg [place] DAILY PRN PRN Reason: constipation Diphenhydramine HCl (Benadryl Iv*) 12.5 mg IV Q6H PRN PRN Reason: PRURITIS Last Admin: 08/07/16 12:18 Dose: 12.5 mg Docusate Sodium (Colace Cap*) 100 mg PO BID [facility] Last Admin: 08/08/16 08:47 Dose: 100 mg Duloxetine HCl (Cymbalta Cap*) 60 mg PO QAM [facility] Last Admin: 08/08/16 08:47 Dose: 60 mg Lactulose (Lactulose*) 30 ml PO Q6H PRN PRN Reason: constipation Lisinopril (Prinivil Tab*) 40 mg PO QPM [facility] Last Admin: 08/07/16 17:51 Dose: 40 mg Lorazepam (Ativan Tab(*)) 1 mg PO Q6H PRN PRN Reason: ANXIETY Last Admin: 08/07/16 22:54 Dose: 1 mg Magnesium Hydroxide (Milk Of Magnesia Liq*) 30 ml PO BID [facility] Last Admin: 08/08/16 08:42 Dose: 30 ml Metoprolol Tartrate (Lopressor Tab*) 12.5 mg PO Q12HR [facility] Last Admin: 08/08/16 08:46 Dose: 12.5 mg Morphine Sulfate (Morphine Inj (Syringe)*) 5 mg IV Q2HR PRN PRN Reason: PAIN - BREAKTHRU Last Admin: 08/08/16 02:20 Dose: 5 mg Multivitamins (Theragran Tab*) 1 tab PO DAILY [facility] Last Admin: 08/08/16 08:47 Dose: 1 tab Omeprazole (Prilosec Cap*) 40 mg PO QAM [facility] Last Admin: 08/08/16 08:43 Dose: 40 mg Ondansetron HCl (Zofran Inj*) 4 mg IV Q6H PRN PRN Reason: nausea Oxycodone HCl (Roxycodone Tab*) 10 mg PO Q4H PRN PRN Reason: PAIN - SEVERE Last Admin: 08/07/16 21:09 Dose: 10 mg Oxycodone/Acetaminophen (Percocet 5/325 Tab*) 1 tab PO Q4H PRN PRN Reason: PAIN - MODERATE Oxycodone/Acetaminophen (Percocet 5/325 Tab*) 2 tab PO Q4HR PRN PRN Reason: PAIN SEVERE Last Admin: 08/08/16 08:42 Dose: 2 tab Polyethylene Glycol/Electrolytes (Miralax*) 17 gm PO DAILY PRN PRN Reason: Constipation Rivaroxaban (Xarelto (*)) 20 mg PO DAILY [facility] Last Admin: 08/08/16 08:59 Dose: 20 mg Vital Signs 08/07/16 08/07/16 08/07/16 11:00 12:00 12:18 Temperature 98.2 F Pulse Rate 78 71 Respiratory 15 18 15 Rate Blood Pressure (mmHg) O2 Sat by Pulse 94 94 Oximetry 08/07/16 08/07/16 08/07/16 13:48 13:57 16:35 Temperature 98.3 F Pulse Rate 86 Respiratory 18 16 22 Rate Blood Pressure 152/71 (mmHg) O2 Sat by Pulse 94 Oximetry 08/07/16 08/07/16 08/07/16 16:39 18:02 18:04 Temperature 98.3 F Pulse Rate 86 Respiratory 22 18 Rate Blood Pressure 152/53 (mmHg) O2 Sat by Pulse 94 94 Oximetry 08/07/16 08/07/16 08/07/16 19:32 20:00 20:04 Temperature Pulse Rate 81 Respiratory 15 20 20 Rate Blood Pressure 160/50 (mmHg) O2 Sat by Pulse 92 Oximetry 08/07/16 08/07/16 08/07/16 20:17 21:05 21:09 Temperature Pulse Rate 78 Respiratory 20 20 Rate Blood Pressure 122/54 (mmHg) O2 Sat by Pulse 93 Oximetry 08/07/16 08/07/16 08/07/16 21:17 22:53 22:54 Temperature Pulse Rate Respiratory 18 20 20 Rate Blood Pressure (mmHg) O2 Sat by Pulse Oximetry 08/07/16 08/07/16 08/07/16 23:09 23:40 23:53 Temperature 98.6 F Pulse Rate 72 Respiratory 16 14 16 Rate Blood Pressure 116/58 (mmHg) O2 Sat by Pulse 92 Oximetry 08/08/16 08/08/16 08/08/16 00:54 02:20 02:21 Temperature Pulse Rate Respiratory 16 20 20 Rate Blood Pressure (mmHg) O2 Sat by Pulse 92 Oximetry 08/08/16 08/08/16 08/08/16 03:20 03:50 03:51 Temperature 98.7 F Pulse Rate 89 Respiratory 16 16 Rate Blood Pressure 126/65 (mmHg) O2 Sat by Pulse 82 96 Oximetry 08/08/16 08/08/16 08/08/16 04:21 07:37 07:49 Temperature 98.4 F Pulse Rate 76 74 Respiratory 16 16 Rate Blood Pressure 107/42 (mmHg) O2 Sat by Pulse 85 93 Oximetry 08/08/16 08/08/16 08:15 08:42 Temperature Pulse Rate Respiratory 16 Rate Blood Pressure (mmHg) O2 Sat by Pulse 85 Oximetry Oxygen Devices in Use Now: None Appearance: Middle aged female sitting up in recliner chair, NAD Eyes: No Scleral Icterus Ears/Nose/Mouth/Throat: Mucous Membranes Moist Respiratory: Symmetrical Chest Expansion and Respiratory Effort, Clear to Auscultation Cardiovascular: NL Sounds; No Murmurs; No JVD, RRR, - - trace L LE edema Abdominal: NL Sounds; No Tenderness; No Distention Extremities: No Clubbing, Cyanosis Skin: No Rash or Ulcers, No Nodules or Sclerosis Neurological: Alert and Oriented x 3 Result Diagrams: 08/08/16 05:43 08/07/16 05:54 Microbiology and Other Data: Microbiology 08/06/16 16:47 Nasal Screen MRSA (PCR)(MATT) - Final Nasal Mrsa Negative Assess/Plan/Problems-Billing Ms Fernandes is a 65 yo F who has a h/o HTN and ANUSHA and is POD#1 from a L TKA and had post operative afib. - Patient Problems (1) Status post total left knee replacement Current Visit: Yes Status: Acute Code(s): Z96.652 - PRESENCE OF LEFT ARTIFICIAL KNEE JOINT SNOMED Code(s): 0519483977770 Comment: Management per Dr. Sheehan. (2) A-fib Current Visit: Yes Status: Acute Code(s): I48.91 - UNSPECIFIED ATRIAL FIBRILLATION SNOMED Code(s): 61085905 Comment: The patient has remained in NSR. Continue metoprolol tartrate 12.5mg BID instead of HCTZ and xarelto. I spoke with Dr. Sheehan yesterday prior to initiating xarelto which he stated was ok. The patient needs to follow up with Dr. Crandall as an outpatient in the next 3-4 weeks. (3) HTN (hypertension) Current Visit: Yes Status: Acute Code(s): I10 - ESSENTIAL (PRIMARY) HYPERTENSION SNOMED Code(s): 79874501 Comment: Continue amlodipine, metoprolol and lisinopril. Stop HCTZ on d/c. (4) ANUSHA (obstructive sleep apnea) Current Visit: Yes Status: Acute Code(s): G47.33 - OBSTRUCTIVE SLEEP APNEA ( ADULT) (PEDIATRIC) SNOMED Code(s): 75253820 Comment: Continue CPAP. (5) DVT prophylaxis Current Visit: Yes Status: Acute Code(s): MBT8140 - SNOMED Code(s): 793758850 Comment: xarelto (6) Full code status Current Visit: Yes Status: Acute Code(s): Z78.9 - OTHER SPECIFIED HEALTH STATUS SNOMED Code(s): 700480073
[2016-08-08] MEDS: oxyCODONE TAB* 5 MG TAB PO PRN (12:34)
[2016-08-08] MEDS: Lisinopril TAB* 10 MG PO SCH (18:02)
[2016-08-09] MEDS: oxyCODONE/Acetamin 5/325 MG* TAB PO PRN ×3 (03:28→13:16)
[2016-08-09 06:23] LABS: Hematocrit 36 % (35-47); Hemoglobin 11.7 g/dl (12.0-16.0)
[2016-08-09 06:41] LABS: Albumin 3.7 g/dL (3.2-5.2); BUN/Creatinine Ratio 14.1 (8-20); Calcium 9.1 mg/dL (8.6-10.3); EGFR African American 94.7 (>60); EGFR Non-African American 73.7 (>60); Globulin 3.1 g/dL (2-4); Potassium 4.3 mmol/L (3.5-5.0); Total Bilirubin 0.8 mg/dL (0.2-1.0); Total Protein 6.8 g/dL (6.4-8.9)
--- NOTE | 2016-08-09 08:13 | PN ---
Subjective Date of Service: 08/09/16 Interval History: Pt is feeling well this AM. Her pain is under control. I was called by nursing last night that the patient was requiring supplemental O2 still. This AM she is on RA and feeling well. Objective Active Medications: Acetaminophen (Tylenol Tab*) 650 mg PO Q4H PRN PRN Reason: pain, fever Amlodipine Besylate (Norvasc Tab*) [facility] Last Admin: 08/08/16 08:47 Dose: 10 mg Bisacodyl (Dulcolax Supp*) 10 mg GA DAILY PRN PRN Reason: constipation Diphenhydramine HCl (Benadryl Iv*) 12.5 mg IV Q6H PRN PRN Reason: PRURITIS Last Admin: 08/07/16 12:18 Dose: 12.5 mg Docusate Sodium (Colace Cap*) 100 mg PO BID [facility] Last Admin: 08/08/16 21:46 Dose: 100 mg Duloxetine HCl (Cymbalta Cap*) 60 [facility] Last Admin: 08/08/16 08:47 Dose: 60 mg Lactulose (Lactulose*) 30 ml PO Q6H PRN PRN Reason: constipation Last Admin: 08/08/16 19:20 Dose: 30 ml Lisinopril (Prinivil Tab*) 40 mg PO QPM [facility] Last Admin: 08/08/16 18:02 Dose: 40 mg Lorazepam (Ativan Tab(*)) 1 mg PO Q6H PRN PRN Reason: ANXIETY Last Admin: 08/07/16 22:54 Dose: 1 mg Magnesium Hydroxide (Milk Of Magnesia Liq*) 30 ml PO BID [facility] Last Admin: 08/08/16 21:46 Dose: 30 ml Metoprolol Tartrate (Lopressor Tab*) 12.5 mg PO Q12HR [facility] Last Admin: 08/08/16 21:48 Dose: 12.5 mg Morphine Sulfate (Morphine Inj (Syringe)*) 5 mg IV Q2HR PRN PRN Reason: PAIN - BREAKTHRU Last Admin: 08/08/16 02:20 Dose: 5 mg Multivitamins (Theragran Tab*) 1 tab PO DAILY [facility] Last Admin: 08/08/16 08:47 Dose: 1 tab Omeprazole (Prilosec Cap*) [facility] Last Admin: 08/08/16 08:43 Dose: 40 mg Ondansetron HCl (Zofran Inj*) 4 mg IV Q6H PRN PRN Reason: nausea Oxycodone HCl (Roxycodone Tab*) 10 mg PO Q4H PRN PRN Reason: PAIN - SEVERE Last Admin: 08/08/16 12:34 Dose: 10 mg Oxycodone/Acetaminophen (Percocet 5/325 Tab*) 1 tab PO Q4H PRN PRN Reason: PAIN - MODERATE Oxycodone/Acetaminophen (Percocet 5/325 Tab*) 2 tab PO Q4HR PRN PRN Reason: PAIN SEVERE Last Admin: 08/09/16 03:28 Dose: 2 tab Polyethylene Glycol/Electrolytes (Miralax*) 17 gm PO DAILY PRN PRN Reason: Constipation Rivaroxaban (Xarelto (*)) 20 mg PO DAILY [facility] Last Admin: 08/08/16 08:59 Dose: 20 mg Vital Signs 08/08/16 08/08/16 08/08/16 08:15 08:42 10:42 Temperature Pulse Rate Respiratory 16 16 Rate Blood Pressure (mmHg) O2 Sat by Pulse 85 Oximetry 08/08/16 08/08/16 08/08/16 11:25 12:34 14:34 Temperature 98.0 F Pulse Rate 71 Respiratory 16 18 18 Rate Blood Pressure 137/61 (mmHg) O2 Sat by Pulse 95 Oximetry 08/08/16 08/08/16 08/08/16 15:31 16:05 16:06 Temperature Pulse Rate 70 Respiratory 17 Rate Blood Pressure 131/48 (mmHg) O2 Sat by Pulse 91 87 94 Oximetry 08/08/16 08/08/16 08/08/16 17:59 19:24 19:32 Temperature 98.5 F 98.9 F Pulse Rate 76 85 53 Respiratory 17 18 Rate Blood Pressure 122/54 111/52 107/53 (mmHg) O2 Sat by Pulse 93 92 91 Oximetry 08/08/16 08/08/16 08/08/16 20:00 21:49 23:50 Temperature 99.0 F Pulse Rate 88 76 Respiratory 17 16 Rate Blood Pressure 123/42 112/47 (mmHg) O2 Sat by Pulse 93 95 Oximetry 08/09/16 08/09/16 08/09/16 01:53 03:18 03:28 Temperature 99.1 F Pulse Rate 78 Respiratory 18 20 Rate Blood Pressure 110/55 (mmHg) O2 Sat by Pulse 94 94 Oximetry 08/09/16 08/09/16 08/09/16 05:28 06:42 07:26 Temperature 98.3 F Pulse Rate 71 Respiratory 18 16 Rate Blood Pressure 124/45 (mmHg) O2 Sat by Pulse 94 91 Oximetry Oxygen Devices in Use Now: None Appearance: Middle aged obese female lying in bed, NAD Eyes: No Scleral Icterus Ears/Nose/Mouth/Throat: Mucous Membranes Moist Respiratory: Symmetrical Chest Expansion and Respiratory Effort, Clear to Auscultation Cardiovascular: NL Sounds; No Murmurs; No JVD, RRR, No Edema Abdominal: NL Sounds; No Tenderness; No Distention Extremities: No Clubbing, Cyanosis Skin: No Rash or Ulcers, No Nodules or Sclerosis Neurological: Alert and Oriented x 3 Result Diagrams: 08/09/16 06:04 08/09/16 06:04 Microbiology and Other Data: Microbiology 08/06/16 16:47 Nasal Screen MRSA (PCR)(MATT) - Final Nasal Mrsa Negative Assess/Plan/Problems-Billing Ms Fernandes is a 65 yo F who has a h/o HTN and ANUSHA and is POD#1 from a L TKA and had post operative afib. - Patient Problems (1) Hypoxia Current Visit: Yes Status: Acute Code(s): R09.02 - HYPOXEMIA SNOMED Code(s ): 799644928 Comment: Resolved. She is now on RA with saturations in the low to mid 90's. ? hypoxia secondary to too much narcotic pain medication in the setting of obesity and in addition she likely has some atelectasis. Continue incentive spirometer. (2) A-fib Current Visit: Yes Status: Acute Code(s): I48.91 - UNSPECIFIED ATRIAL FIBRILLATION SNOMED Code(s): 30278147 Comment: The patient has remained in NSR. Continue metoprolol tartrate 12.5mg BID and xarelto 20mg daily. Follow up with Dr. Crandall as outpatient. (3) Status post total left knee replacement Current Visit: Yes Status: Acute Code(s): Z96.652 - PRESENCE OF LEFT ARTIFICIAL KNEE JOINT SNOMED Code(s): 1454319326302 Comment: Management per Dr. Sheehan. (4) HTN (hypertension) Current Visit: Yes Status: Acute Code(s): I10 - ESSENTIAL (PRIMARY) HYPERTENSION SNOMED Code(s): 98009171 Comment: Continue amlodipine, metoprolol and lisinopril. BP is under good control. (5) ANUSHA (obstructive sleep apnea) Current Visit: Yes Status: Acute Code(s): G47.33 - OBSTRUCTIVE SLEEP APNEA ( ADULT) (PEDIATRIC) SNOMED Code(s): 50361507 Comment: Continue CPAP. (6) DVT prophylaxis Current Visit: Yes Status: Acute Code(s): ATX2556 - SNOMED Code(s): 751864740 Comment: sander (7) Full code status Current Visit: Yes Status: Acute Code(s): Z78.9 - OTHER SPECIFIED HEALTH STATUS SNOMED Code(s): 676082264
[2016-08-09] MEDS: DULoxetine DR CAP* 60 MG CAP.DR PO SCH (08:39)
[2016-08-09] MEDS: Omeprazole CAP* 20 MG PO SCH (08:39)
[2016-08-09] MEDS: Docusate CAP* 100 MG PO SCH (08:39)
[2016-08-09] MEDS: Metoprolol Tartrate TAB* 25 MG PO SCH (08:39)
[2016-08-09] MEDS: Vitamin THERAPEUTIC TAB PO SCH (08:39)
[2016-08-09] MEDS: Rivaroxaban TAB(*) 20 MG TAB PO SCH (08:39)
[2016-08-09] MEDS: amLODIPine TAB* 5 MG PO SCH (08:40)
[2016-08-09] MEDS: Magnesium Hydroxide LIQ* 30 ML UDC PO SCH (08:46)
--- NOTE | 2016-08-09 11:06 | PN ---
Progress Note - Progress Note SOAP: Subjective: []Patient seen OOB in chair, doing better and will work with PT this am and this afternoon. She feels she will be able to go home later after therapy. She understands she has been placed on the Xarelto anti coagulant for the newly diagnosed afib and will not take the Coumadin as previously prescribed. She denies SOB, dizziness or CP. Objective: [] Vital Signs Temp 98.3 F 08/09/16 07:26 Pulse 90 08/09/16 08:54 Resp 16 08/09/16 08:40 BP 124/45 08/09/16 07:26 Pulse Ox 94 08/09/16 08:54 Intake & Output 08/08/16 08/09/16 08/09/16 18:59 06:59 18:59 Intake Total 1410 1760 200 Output Total 900 700 Balance 510 1060 200 Intake: Oral 1410 1760 200 Output: Urine 700 700 Hussein 200 Other: Estimated Void Small Large Medium Date of Last Bowel 08/09/16 Movement # Bowel Movements 1 1 Estimated Stool Amount Large Large # Voids 1 1 1 Laboratory Results - last 24 hr 08/09/16 08/09/16 06:04 06:04 Hgb 11.7 L Hct 36 Sodium 136 Potassium 4.3 Chloride 102 Carbon Dioxide 26 Anion Gap 8 BUN 11 Creatinine 0.78 Est GFR ( Amer) 94.7 Est GFR (Non-Af Amer) 73.7 BUN/Creatinine Ratio 14.1 Glucose 136 H Calcium 9.1 Total Bilirubin 0.80 AST 32 ALT 30 Alkaline Phosphatase 62 Total Protein 6.8 Albumin 3.7 Globulin 3.1 Albumin/Globulin Ratio 1.2 Left knee incision remains benign calf NT and soft neuro intact distally Assessment: []s/p LTK POD #3 Plan: []Discharge home later today after afternoon PT session Follow up with Dr. Sheehan in 3-4 weeks Follow up with Dr. Crandall 2-3 weeks
[2016-08-09 13:33] VITALS: BP 114/58
--- NOTE | 2016-08-09 21:48 | DS ---
DISCHARGE SUMMARY: DATE OF ADMISSION: 08/06/16 DATE OF DISCHARGE: 08/09/16 ATTENDING PHYSICIAN: Dr. Luther Sheehan. (DICTATED BY MANDY VAZQUEZ) ADMISSION DIAGNOSIS: Advanced osteoarthritis, left knee. DISCHARGE DIAGNOSES: 1. Advanced osteoarthritis, left knee. 2. Atrial fibrillation. SURGERY PERFORMED: Left total knee arthroplasty. HOSPITAL COURSE: The patient is a 65-year-old female who failed conservative management regarding her ongoing left knee pain. She elected to proceed with left total knee arthroplasty and was taken to the operating room under the care of Dr. Luther Sheehan on the date of 08/06/16. Apparently, during her operation and in the PACU postoperatively, there was some noted irregular heart rate. The patient was seen by Maikol Peacock NP, for medical consultation post- operatively in the PACU. The patient did report history of palpitations on and off for just over the last year. She was also evaluated by Cardiology, Dr. Crandall, and echocardiogram was ordered as well as new review of EKG. It was felt that she has new-onset atrial fibrillation, although she went back into sinus rhythm postoperatively and remained in the sinus rhythm throughout her hospital stay. It is noted she was monitored in the ICU postoperative day #1 as this is the only post-surgical telemetry unit available. She felt well and had no significant shortness of breath, dizziness, chest pain. Dr. Huber also followed her daily during her hospital stay. She was started on Xarelto 20 mg p.o. daily as well as a low-dose metoprolol 12.5 mg p.o. b.i.d. She did progress satisfactorily with her physical therapy and occupational therapy goals pertaining to her left knee. It was felt that she was stable both medically and orthopedically for discharge to home on the date of 08/09/16. CONDITION ON DISCHARGE: Her vital signs are stable. She is afebrile. Her left knee incision is healing without evidence of infection. Her calf is nontender and soft. Her neurovascular status is grossly intact. She has positive dorsiflexion and plantar flexion of the left ankle. PLAN: Discharge to home, bearing weight as tolerated on the left lower extremity. She will continue with her physical therapy exercises. She will be seen by visiting nursing services and will have luis removed in roughly 10 to 12 days. She will not need biweekly blood draws, as she is not going to take the Coumadin, now that she has been started on the Xarelto 20 mg p.o. daily. She will follow up with Dr. Sheehan in roughly 3 to 4 weeks and follow up with Dr. Crandall in 2 to 3 weeks at the [facility]. New prescriptions of Xarelto and metoprolol have been called in by Dr. Huber to her pharmacy. She has her Percocet 5/325 mg, she will take as needed for pain. If she has any noted difficulties with the knee, increased pain, drainage, increased swelling, calf pain or swelling, shortness of breath, chest pain, the office will be contacted. Otherwise, she will follow up as scheduled with Dr. Sheehan and Dr. Crandall. MANDY VAZQUEZ [id number]/[facility] #: [id number] MTDMarcello
== END 2016-08-09 16:15 | disposition home health service (06) | DRG 470 ==
LOC: AA 07:54 → ICU 15:35 → SSU 08-07 17:03
PROVIDERS: ADMIT Orthopaedic Surgery; ATTEND Orthopaedic Surgery
PROC: 0SRD0J9 Replacement of Left Knee Joint with Synthetic Substitute, Cemented, Open Approach (ICD-10-PCS; principal; 2016-08-06 09:30)
DX: M17.12 Unilateral primary osteoarthritis, left knee (principal); I48.91 Unspecified atrial fibrillation; Z68.42 Body mass index [BMI] 45.0-49.9, adult; J98.11 Atelectasis; E66.01 Morbid (severe) obesity due to excess calories; Z79.82 Long term (current) use of aspirin; Z88.8 Allergy status to other drugs, medicaments and biological substances; I10 Essential (primary) hypertension; M48.00 Spinal stenosis, site unspecified; F32.9 Major depressive disorder, single episode, unspecified; K21.9 Gastro-esophageal reflux disease without esophagitis; Z96.651 Presence of right artificial knee joint; Z87.891 Personal history of nicotine dependence; Z80.9 Family history of malignant neoplasm, unspecified; G47.33 Obstructive sleep apnea (adult) (pediatric); R09.02 Hypoxemia
CPT/HCPCS: 36415; 80048; 80053; 83735; 84443; 85014; 85018; 85610; 87641; 88305; 88311; 93005; 93306; 94760; A9270-GY; C1776; C8929; J0690; J1200; J1240; J1644; J1885; J2250; J2270; J2300; J2405; J2704; J2795; J3010

== ENCOUNTER 2018-01-30 18:08 | Emergency (ER) | payer MEDICARE, BC ==
[2018-01-30 18:50] LABS: ABS Basophils 0.1 10^3/ul (0-0.2); ABS Eosinophils 0.2 10^3/ul (0-0.6); ABS Monocytes 0.7 10^3/ul (0-0.8); ABS Neutrophils 4.6 10^3/ul (1.5-7.7); ABS Nucleated RBC 0 10^3/ul; Eosinophil % 2.8 %; Hematocrit 43 % (35-47); Hemoglobin 14.4 g/dl (12.0-16.0); Lymphocyte % 26.2 %; Mean Corpuscular HGB Conc 34 g/dl (31-36); Mean Corpuscular Hemoglobin 30 pg (27-31); Mean Corpuscular Volume 88 fL (80-97); Mean Platelet Volume 8.7 fL (7.4-10.4); Nucleated Red Blood Cells % 0.1; Platelet Count 255 10^3/ul (150-450); Red Blood Count 4.86 10^6/ul (4.00-5.40); Red Cell Distribution Width 14 % (10.5-15); White Blood Count 7.6 10^3/ul (3.5-10.8)
[2018-01-30 19:07] LABS: EGFR Non-African American 74.3 (>60)
[2018-01-30 21:10] LABS: Urine Appearance Cloudy; Urine Blood 3+ (Negative); Urine Color Yellow; Urine Ketones Negative (Negative); Urine Protein 1+(30 mg/dL) (Negative); Urine Red Blood Cell 3+(>10/hpf) (Absent); Urine Specific Gravity 1.014 (1.010-1.030); Urine Urobilinogen Negative (Negative); Urine White Blood Cell 3+(>20/hpf) (Absent)
--- NOTE | 2018-01-30 21:40 | ED ---
GI/ HPI - HPI Summary HPI Summary: This patient is a 67 year old F presenting to [facility] accompanied by family with a chief complaint of vaginal bleeding that began earlier today. The patient rates the pain 0/10 in severity. Symptoms aggravated by nothing. Symptoms alleviated by nothing. Patient reports R lower back pain (intermittent) and nausea. Patient denies urinary symptoms and recent weight loss. Patient states she had similar symptoms previously, and an US was taken. She reports the US showed fibroids and her uterine thickening. - History of Current Complaint Chief Complaint: EDVaginalBleeding Time Seen by Provider: 01/30/18 21:13 Stated Complaint: ABNORMAL BLEEDING Hx Obtained From: Patient Onset/Duration: Started Hours Ago, Atraumatic, Still Present Timing: Constant Severity: Mild Current Severity: Mild Vaginal Bleeding Description: Bright Red Pain Intensity: 0 Additional Signs & Symptoms: Positive: Other: - Positive R lower back pain ( intermittent) and nausea. Negative urinary symptoms and weight loss. Aggravating Factor(s): Nothing Alleviating Factor(s): Nothing - Additional Pertinent History Primary Care Physician: ANTHONY - Allergy/Home Medications Allergies/Adverse Reactions: Allergies Allergy/AdvReac Type Severity Reaction Status Date / Time trazodone Allergy Severe Shortness Verified 07/18/17 15:28 of Breath amitriptyline Allergy Intermediate Shakes Verified 07/18/17 15:28 PMH/Surg Hx/FS Hx/Imm Hx Previously Healthy: No Cardiovascular History: Reports: Hx Hypertension - ON MEDICATION FOR, Other Cardiovascular Problems/Disorders - PALPITATIONS- HAPPENS APPROX. 6 TIMES PER YEAR, a-fib during surgery Respiratory History: Reports: Hx Sleep Apnea GI History: Reports: Hx Gastroesophageal Reflux Disease - ON MEDICATION FOR Musculoskeletal History: Reports: Hx Arthritis - KNEES, BACK, Other Musculoskeletal History - bilateral knee replacement Sensory History: Reports: Hx Contacts or Glasses Denies: Hx Hearing Aid Opthamlomology History: Reports: Hx Contacts or Glasses Psychiatric History: Reports: Hx Anxiety - ON MEDICATION FOR, Hx Depression - ON MEDICATION FOR - Surgical History Surgery Procedure, Year, and Place: 1952-TONSILECTOMY. [id number] BREAST-BENIGN. 1991-CONE BIOPSY. 2001-CARPAL TUNNEL LEFT WRIST. 2004-RIGHT WRIST CARPAL TUNNEL RELEASE. 2006-RIGHT TOTAL KNEE REPLACEMENT-[facility] Hx Anesthesia Reactions: No Infectious Disease History: No Infectious Disease History: Denies: Traveled Outside the [place] in Last 30 Days - Family History Known Family History: Positive: Other - Negative anesthesia reaction - Social History Occupation: Retired Lives: With Family Alcohol Use: None Hx Substance Use: No Substance Use Type: Reports: None Substance Use Comment - Amount & Last Used: pain meds Hx Tobacco Use: Yes Smoking Status (MU): Former Smoker Amount Used/How Often: 1/2 PPD X 15 YEARS Have You Smoked in the Last Year: No Review of Systems Positive: Nausea, Other - Negative recent weight loss Genitourinary: Other - Positive vaginal bleeding Negative: dysuria, pain Positive: Other - Positive back pain All Other Systems Reviewed And Are Negative: Yes Physical Exam - Summary Physical Exam Summary: VITAL SIGNS: Reviewed. GENERAL: Patient is a well-developed and morbidly obese female who is lying comfortable in the stretcher. Patient is not in any acute respiratory distress. HEAD AND FACE: No signs of trauma. No ecchymosis, hematomas or skull depressions. No sinus tenderness. EYES: PERRLA, EOMI x 2, No injected conjunctiva, no nystagmus. EARS: Hearing grossly intact. Ear canals and tympanic membranes are within normal limits. MOUTH: Oropharynx within normal limits. NECK: Supple, trachea is midline, no adenopathy, no JVD, no carotid bruit, no c- spine tenderness, neck with full ROM. CHEST: Symmetric, no tenderness at palpation LUNGS: Clear to auscultation bilaterally. No wheezing or crackles. CVS: Regular rate and rhythm, S1 and S2 present, no murmurs or gallops appreciated. ABDOMEN: Soft, non-tender. No signs of distention. No rebound no guarding, and no masses palpated. Bowel sounds are normal. PELVIC EXAM: Female RN present. External genitalia are normal. Speculum exam to show normal vagina. Cervix is bulky and there is mild bloody discharge from the cervix. EXTREMITIES: FROM in all major joints, no edema, no cyanosis or clubbing. NEURO: Alert and oriented x 3. No acute neurological deficits. Speech is normal and follows commands. SKIN: Dry and warm Triage Information Reviewed: Yes Vital Signs On Initial Exam: Initial Vitals Temp Pulse Resp BP Pulse Ox 97.2 F 94 18 142/73 97 01/30/18 18:17 01/30/18 18:17 01/30/18 18:17 01/30/18 18:17 01/30/18 18:17 Vital Signs Reviewed: Yes Diagnostics - Vital Signs Vital Signs Temp Pulse Resp BP Pulse Ox 01/30/18 20:43 98.6 F 72 16 155/76 100 01/30/18 18:17 97.2 F 94 18 142/73 97 - Laboratory Lab Results: Lab Results 01/30/18 01/30/18 01/30/18 Range/Units 18:38 18:39 18:39 WBC 7.6 (3.5-10.8) 10^3/ul RBC 4.86 (4.00-5.40) 10^6/ul Hgb 14.4 (12.0-16.0) g/dl Hct 43 (35-47) % MCV 88 (80-97) fL MCH 30 (27-31) pg MCHC 34 (31-36) g/dl RDW 14 (10.5-15) % Plt Count 255 (150-450) 10^3/ul MPV 8.7 (7.4-10.4) fL Neut % (Auto) 60.6 % Lymph % (Auto) 26.2 % Harding % (Auto) 9.6 % Eos % (Auto) 2.8 % Baso % (Auto) 0.8 % Absolute Neuts (auto) 4.6 (1.5-7.7) 10^3/ul Absolute Lymphs (auto) 2.0 (1.0-4.8) 10^3/ul Absolute Monos (auto) 0.7 (0-0.8) 10^3/ul Absolute Eos (auto) 0.2 (0-0.6) 10^3/ul Absolute Basos (auto) 0.1 (0-0.2) 10^3/ul Absolute Nucleated RBC 0 10^3/ul Nucleated RBC % 0.1 INR (Anticoag Therapy) 1.00 (0.77-1.02) APTT 28.8 (26.0-36.3) seconds Sodium 139 (135-145) mmol/L Potassium 3.9 (3.5-5.0) mmol/L Chloride 106 (101-111) mmol/L Carbon Dioxide 24 (22-32) mmol/L Anion Gap 9 (2-11) mmol/L BUN 17 (6-24) mg/dL Creatinine 0.77 (0.51-0.95) mg/dL Est GFR ( Amer) 89.9 (>60) Est GFR (Non-Af Amer) 74.3 (>60) BUN/Creatinine Ratio 22.1 H (8-20) Glucose 111 H (70-100) mg/dL Lactic Acid (0.5-2.0) mmol/L Calcium 9.6 (8.6-10.3) mg/dL Total Bilirubin 0.50 (0.2-1.0) mg/dL AST 50 H (13-39) U/L ALT 43 (7-52) U/L Alkaline Phosphatase 68 (34-104) U/L Total Protein 7.2 (6.4-8.9) g/dL Albumin 4.3 (3.2-5.2) g/dL Globulin 2.9 (2-4) g/dL Albumin/Globulin Ratio 1.5 (1-3) Urine Color Urine Appearance Urine pH (5-9) Ur Specific Dillard (1.010-1.030) Urine Protein (Negative) Urine Ketones (Negative) Urine Blood (Negative) Urine Nitrate (Negative) Urine Bilirubin (Negative) Urine Urobilinogen (Negative) Ur Leukocyte Esterase (Negative) Urine WBC (Auto) (Absent) Urine RBC (Auto) (Absent) Ur Squamous Epith Cells (Absent) Urine Bacteria (Absent) Hyaline Casts (Absent) Urine Glucose (Negative) 01/30/18 01/30/18 Range/Units 18:39 21:00 WBC (3.5-10.8) 10^3/ul RBC (4.00-5.40) 10^6/ul Hgb (12.0-16.0) g/dl Hct (35-47) % MCV (80-97) fL MCH (27-31) pg MCHC (31-36) g/dl RDW (10.5-15) % Plt Count (150-450) 10^3/ul MPV (7.4-10.4) fL Neut % (Auto) % Lymph % (Auto) % Harding % (Auto) % Eos % (Auto) % Baso % (Auto) % Absolute Neuts (auto) (1.5-7.7) 10^3/ul Absolute Lymphs (auto) (1.0-4.8) 10^3/ul Absolute Monos (auto) (0-0.8) 10^3/ul Absolute Eos (auto) (0-0.6) 10^3/ul Absolute Basos (auto) (0-0.2) 10^3/ul Absolute Nucleated RBC 10^3/ul Nucleated RBC % INR (Anticoag Therapy) (0.77-1.02) APTT (26.0-36.3) seconds Sodium (135-145) mmol/L Potassium (3.5-5.0) mmol/L Chloride (101-111) mmol/L Carbon Dioxide (22-32) mmol/L Anion Gap (2-11) mmol/L BUN (6-24) mg/dL Creatinine (0.51-0.95) mg/dL Est GFR ( Amer) (>60) Est GFR (Non-Af Amer) (>60) BUN/Creatinine Ratio (8-20) Glucose (70-100) mg/dL Lactic Acid 1.1 (0.5-2.0) mmol/L Calcium (8.6-10.3) mg/dL Total Bilirubin (0.2-1.0) mg/dL AST (13-39) U/L ALT (7-52) U/L Alkaline Phosphatase (34-104) U/L Total Protein (6.4-8.9) g/dL Albumin (3.2-5.2) g/dL Globulin (2-4) g/dL Albumin/Globulin Ratio (1-3) Urine Color Yellow Urine Appearance Cloudy Urine pH 6.0 (5-9) Ur Specific Dillard 1.014 (1.010-1.030) Urine Protein 1+(30 mg/dl) A (Negative) Urine Ketones Negative (Negative) Urine Blood 3+ A (Negative) Urine Nitrate Negative (Negative) Urine Bilirubin Negative (Negative) Urine Urobilinogen Negative (Negative) Ur Leukocyte Esterase 3+ A (Negative) Urine WBC (Auto) 3+(>20/hpf) A (Absent) Urine RBC (Auto) 3+(>10/hpf) A (Absent) Ur Squamous Epith Cells Present A (Absent) Urine Bacteria 1+ A (Absent) Hyaline Casts Present A (Absent) Urine Glucose Negative (Negative) Result Diagrams: 01/30/18 18:39 01/30/18 18:39 Lab Statement: Any lab studies that have been ordered have been reviewed, and results considered in the medical decision making process. GIGU Course/Dx - Course Course Of Treatment: This patient is a 67 year old F presenting to [facility] accompanied by family with a chief complaint of vaginal bleeding that began earlier today. Physical Exam Findings: Morbidly obese. External genitalia are normal. Speculum exam to show normal vagina. Cervix is bulky and there is mild bloody discharge from the cervix. Patient does not have dysuria, no burning, no UTI symptoms. So there is no need to treat her UTI. Patient already has an appointment with her OBGYN on Saturday. Patient will most likely D&C and internal biopsy to rule out malignancy, this was communicated with the patient. In her history, the patient has vaginal bleeding. Her last biopsy was nonmalignant. Bloodwork and UA obtained. Patient will be discharged with follow up from PCP and her OBGYN. The patient is agreeable with this plan. - Diagnoses Provider Diagnoses: Post-menopausal bleeding Discharge - Sign-Out/Discharge Documenting (check all that apply): Patient Departure - Discharge home - Discharge Plan Condition: Stable Disposition: HOME Patient Education Materials: Dysfunctional Uterine Bleeding (ED) Referrals: [facility]ERR[facility] [Outside] Additional Instructions: RETURN TO THE EMERGENCY DEPARTMENT FOR NEW OR WORSENING SYMPTOMS - Attestation Statements Document Initiated by Scribe: Yes Documenting Scribe: Kia Campos Provider For Whom Rosmery is Documenting (Include Credential): Dr. Mandeep Villa MD Scribe Attestation: Kia Sorensen, serenityed for Dr. Mandeep Villa MD on 01/30/18 at [id number]. Status of Scribe Document: Ready
[2018-01-30 22:11] VITALS: BP 146/78
== END 2018-01-30 22:10 | disposition home or self-care (01) ==
LOC: ED 18:08
DX: M54.5 Low back pain (principal); N95.0 Postmenopausal bleeding; I10 Essential (primary) hypertension; K21.9 Gastro-esophageal reflux disease without esophagitis; F41.9 Anxiety disorder, unspecified; F32.9 Major depressive disorder, single episode, unspecified; Z96.651 Presence of right artificial knee joint; Z88.8 Allergy status to other drugs, medicaments and biological substances; Z87.891 Personal history of nicotine dependence
CPT/HCPCS: 36415; 80053; 81003; 81015; 83605; 85025; 85610; 85730; 87086; 99282